=== PATIENT | female | born 1955 | race Caucasian/White ===

== ENCOUNTER → 2017-09-14 | Outpatient (CLI) | payer OTHER ==
--- NOTE | 2017-09-14 10:37 | WWHP ---
[facility] - HISTORY AND PHYSICAL DATE OF SERVICE: 09/14/2017 CHIEF COMPLAINT: The patient is here for her routine gynecologic exam and mammogram. HPI: This is a 61-year-old G0 with an LMP of 2006. The patient is without gynecologic complaints and denies any postmenopausal bleeding. PAST MEDICAL HISTORY: Chronic hypertension, hypothyroidism, and seasonal allergies. MEDICATIONS: 1. Synthroid 100 mcg daily. 2. Lisinopril 20 mg daily. 3. Celexa 20 mg daily. 4. Multivitamin daily. 5. Calcium with vitamin D daily. 6. Vitamin D supplement 400 units daily. ALLERGIES: No known drug allergies. PAST SURGICAL HISTORY: Colonoscopy 2009, oral surgery in the past and a benign cyst removed from the face in the past. 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 FAMILY HISTORY: Father had lung cancer and prostate cancer. Mother has coronary artery disease and CHF. SOCIAL HISTORY: She quit smoking at age 41 and has about 8 alcohol containing drinks per week and denies drug use. She is single and has been with her significant other since 2001 and is not sexually active. She has 3 horses. REVIEW OF SYSTEMS: She has gained about 6 pounds over the last year. She denies respiratory, cardiac or GI problems. PHYSICAL EXAM: Blood pressure 163/78, height 5 feet 5 inches, weight 162 pounds, temperature 98.5, pulse 61. This is a well-developed, well-nourished, white female, who is alert and oriented x3, in no acute distress HEENT is within normal limits. NECK: Supple without mass or thyromegaly chest. CHEST AND LUNGS: Clear to auscultation. HEART: Regular rate and rhythm. Breasts are without mass or discharge. Axillary exam is negative for adenopathy. BACK: Negative for CVA tenderness. ABDOMEN: Soft, nontender, without palpable masses. PELVIC EXAM: External genitalia reveals mild to moderate atrophy without lesions. Cervix and vagina reveal mild to moderate atrophy without lesions. Cervix appears nulliparous and cervix is somewhat stenotic upon doing the Pap smear. There is no evidence of prolapse. The uterus is mid position, nongravid size and nontender. There are no palpable adnexal masses or tenderness. Rectovaginal exam is negative for mass or tenderness and is negative for occult blood. EXTREMITIES: Nontender. IMPRESSION: 1. A 61-year-old menopausal female with normal gynecologic exam. 2. Elevated blood pressure with history of chronic hypertension. PLAN: 1. Pap smear was performed. 2. Self breast examination was discussed. 3. Mammogram will be done today. 4. Osteoporosis prevention was discussed. Her last bone density test was approximately 2013 per the patient and was normal per the patient. We will plan on repeating this in 1 to 2 years. 5. We have discussed her elevated blood pressure. She is able to check her blood pressure at home and I have recommended she do this on a regular basis and to follow up with Dr. Ruiz regarding blood pressure elevations. 6. She will return in 1 year. MMODL / IJN: [id number] /
--- NOTE | 2017-09-16 09:50 | MM ---
Reason for exam: screening (asymptomatic). Last mammogram was performed 1 year and 1 month ago. History: Patient is postmenopausal and is nulliparous. Physical Findings: A clinical breast exam by your physician is recommended on an annual basis and results should be correlated with mammographic findings. MG Screening Mammo w CAD Bilateral CC and MLO view(s) were taken. Prior study comparison: August 04, 2016, bilateral MG screening mammo w CAD. June 24, 2015, bilateral MG screening mammo w CAD. There are scattered fibroglandular densities. No significant changes when compared with prior studies. ASSESSMENT: Negative, BI-RAD 1 RECOMMENDATION: Routine screening mammogram of both breasts in 1 year.
== END ==
LOC: WWCWWP 09:34
PROVIDERS: ATTEND Obstetrics & Gynecology
DX: Z12.31 Encounter for screening mammogram for malignant neoplasm of breast (principal)

== ENCOUNTER → 2020-01-01 | Outpatient (CLI) | payer OTHER ==
[2020-01-01 09:45] VITALS: BP 164/79; PULSE 65; RESP 18; TEMP 98.4
--- NOTE | 2020-01-01 10:18 | P.HPOB ---
History of Present Illness H&P Date: 01/01/20 Chief Complaint: The patient is here for her routine gynecologic exam and ma mmogram. This is a 64-year-old G0 with an LMP of 2006. The patient is without gynecologic complaints and denies any postmenopausal bleeding. Review of Systems The patient has lost 7 pounds over the last year. This has been with diet and exercise. She denies respiratory, cardiac, or G.I. problems. Past Medical History Past Medical History: Hypertension, Thyroid Disorder Additional Past Medical History / Comment(s): Hypothyroidism. Seasonal allergies. 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 History of Any Multi-Drug Resistant Organisms: None Reported Past Surgical History: No Surgical Hx Reported Additional Past Surgical History / Comment(s): Oral surgery and a benign cyst removed from the face. Colonoscopy 2009. Past Psychological History: Depression Smoking Status: Former smoker Past Alcohol Use History: Occasional (8 per week.) Additional Past Alcohol Use History / Comment(s): Quit smoking at age 41. Past Drug Use History: None Reported Additional History: She is single and has been with her significant other since 2001. She is not sexually active. 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 She has to horses and takes care of her third.. - Past Family History Father Family Medical History: Cancer Additional Family Medical History / Comment(s): Lung and prostate cancer. Mother Family Medical History: Congestive Heart Failure (CHF), Coronary Artery Disease (CAD) Medications and Allergies Home Medications Medication Instructions Recorded Confirmed Type Calcium Carbonate/Vitamin D3 1,200 each PO DAILY 10/24/18 01/01/20 History [Calcium 500-Vit D3 600 Tablet] Citalopram Hydrobromide [CeleXA] 20 mg PO DAILY 10/24/18 01/01/20 History Levothyroxine Sodium [Synthroid] 88 mcg PO DAILY 10/24/18 01/01/20 History Lisinopril [Zestril] 20 mg PO DAILY 10/24/18 01/01/20 History Multivitamin [Multivitamins Adult 1 each PO DAILY 10/24/18 01/01/20 History Gummies] Cholecalciferol [Vitamin D3 (25 5,000 unit PO DAILY 01/01/20 01/01/20 History Mcg = 1000 Iu)] Allergies Allergy/AdvReac Type Severity Reaction Status Date / Time No Known Allergies Allergy Unverified 01/01/20 09:47 Exam Vital Signs Temp Pulse Resp BP Pulse Ox 01/01/20 09:41 98.4 F 65 18 164/79 99 Intake and Output 12/31/19 01/01/20 01/01/20 22:59 06:59 14:59 Other: Weight 71.668 kg Height 5 feet 5 inches, weight 158 pounds, BMI 26.3. This is a well-developed well-nourished white female who is alert and oriented times 3 in no acute distress. HEENT: Within normal limits. NECK: Supple without mass or thyromegaly. CHEST AND LUNGS: Clear to auscultation. HEART: Regular rate and rhythm. BREASTS: Are without mass or discharge. There is central left breast nipple inversion which she states has been this way most of her life. AXILLARY EXAM: Negative for adenopathy. BACK: Negative for CVA tenderness. ABDOMEN: Soft, nontender, without palpable masses. PELVIC EXAM: Normal external genitalia with mild atrophy. Cervix and vagina appear normal mild atrophy. There is no unusual discharge. There is no evidence of prolapse. The uterus is midposition, nongravid size and nontender. There are no palpable adnexal masses or tenderness. RECTAL EXAM: Rectovaginal exam is negative for mass or tenderness and is negative for occult blood. EXTREMITIES: Nontender. IMPRESSION: 1. 64-year-old menopausal female with normal gynecologic exam. 2. Elevated blood pressure with history of chronic hypertension. PLAN: 1. Pap smear was performed. 2. Self breast awareness was discussed with the patient. 3. Screening mammogram will be done today. 4. Osteoporosis prevention was discussed. I have stressed the importance of adequate calcium, vitamin D and regular exercise. Recommended amounts of calcium and vitamin D were also discussed. She states she will be doing bone density testing through her PCP in the near future. 5. She is due for her colonoscopy and she will discuss this with her PCP. 6. We have discussed her elevated blood pressure. I have recommended that she check her own blood pressure on a daily basis since she has a blood pressure cuff. She will follow up with her PCP for blood pressure elevations. 7. She was advised to return in one year for her annual well woman exam.
--- NOTE | 2020-01-02 12:00 | MM ---
Reason for exam: screening (asymptomatic). Last mammogram was performed 1 year and 2 months ago. History: Patient is postmenopausal and is nulliparous. Physical Findings: A clinical breast exam by your physician is recommended on an annual basis and results should be correlated with mammographic findings. MG Screening Mammo w CAD Bilateral CC and MLO view(s) were taken. Prior study comparison: October 24, 2018, bilateral MG screening mammo w CAD. September 14, 2017, bilateral MG screening mammo w CAD. Stable left upper outer quadrant posterior depth focal asymmetry. No significant changes when compared with prior studies. ASSESSMENT: Benign, BI-RAD 2 RECOMMENDATION: Routine screening mammogram of both breasts in 1 year.
== END | disposition home or self-care (01) ==
LOC: WWCWWP 09:19
PROVIDERS: ATTEND Obstetrics & Gynecology
DX: Z12.31 Encounter for screening mammogram for malignant neoplasm of breast (principal)
CPT/HCPCS: 77067

== ENCOUNTER → 2021-03-10 | Outpatient (CLI) | payer OTHER ==
[2021-03-10 10:58] VITALS: BP 162/87; PULSE 68; RESP 18; TEMP 98
--- NOTE | 2021-03-10 11:32 | P.HPOB ---
History of Present Illness H&P Date: 03/10/21 Chief Complaint: The patient is here for her routine gynecologic exam and ma mmogram. This is a 65-year-old G0 with an LMP of 2006. The patient is without gynecologic complaints and denies any postmenopausal bleeding. Review of Systems The patient's weight has been stable over the last year. She denies respiratory, cardiac, or G.I. problems. Past Medical History Past Medical History: Hypertension, Thyroid Disorder Additional Past Medical History / Comment(s): Hypothyroidism. Seasonal allergies. 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 History of Any Multi-Drug Resistant Organisms: None Reported Past Surgical History: No Surgical Hx Reported Additional Past Surgical History / Comment(s): Oral surgery and a benign cyst removed from the face. Colonoscopy 2009([facility] 2019). Past Psychological History: Depression Smoking Status: Former smoker Past Alcohol Use History: Occasional (9 per week) Additional Past Alcohol Use History / Comment(s): Quit smoking at age 41. Past Drug Use History: None Reported Additional History: She is single and has been with her significant other since 2001. She is not sexually active. She is retired. She has horses. - Past Family History Father Family Medical History: Cancer Additional Family Medical History / Comment(s): Lung and prostate cancer. Mother Family Medical History: Congestive Heart Failure (CHF), Coronary Artery Disease (CAD) Medications and Allergies Home Medications Medication Instructions Recorded Confirmed Type Calcium Carbonate/Vitamin D3 1,200 each PO DAILY 10/24/18 03/10/21 History [Calcium 500-Vit D3 600 Tablet] Citalopram Hydrobromide [CeleXA] 20 mg PO DAILY 10/24/18 03/10/21 History Levothyroxine Sodium [Synthroid] 88 mcg PO DAILY 10/24/18 03/10/21 History Multivitamin [Multivitamins Adult 1 each PO DAILY 10/24/18 03/10/21 History Gummies] lisinopriL [Zestril] 20 mg PO DAILY 10/24/18 03/10/21 History Cholecalciferol [Vitamin D3 (25 5,000 unit PO DAILY 01/01/20 03/10/21 History Mcg = 1000 Iu)] Allergies Allergy/AdvReac Type Severity Reaction Status Date / Time No Known Allergies Allergy Unverified 03/10/21 10:55 Exam Vital Signs Temp Pulse Resp BP Pulse Ox 03/10/21 10:55 98.0 F 68 18 162/87 100 Intake and Output 03/09/21 03/10/21 03/10/21 22:59 06:59 14:59 Other: Weight 70.76 kg Height 5 feet 5 inches, weight 156 pounds, BMI 26.0. This is a well-developed well-nourished white female who is alert and oriented times 3 in no acute distress. HEENT: Within normal limits. NECK: Supple without mass or thyromegaly. CHEST AND LUNGS: Clear to auscultation. HEART: Regular rate and rhythm. BREASTS: Are without mass or discharge. AXILLARY EXAM: Negative for adenopathy. BACK: Negative for CVA tenderness. ABDOMEN: Soft, nontender, without palpable masses. PELVIC EXAM: Normal external genitalia with mild to moderate atrophy. Cervix and vagina appear normal with mild atrophy. There is no unusual discharge. There is no evidence of prolapse. The uterus is midposition, nongravid size and nontender. There are no palpable adnexal masses or tenderness. RECTAL EXAM: Rectal exam was declined by the patient. EXTREMITIES: Nontender. IMPRESSION: 1. 65-year-old menopausal female with normal gynecologic exam. 2. Elevated blood pressure with history of chronic hypertension. PLAN: 1. Pap smear was deferred since she had a normal one on 01/01/2020. 2. Self breast awareness was discussed with the patient. 3. Screening mammogram will be done today. 4. If discussed her elevated blood pressure. I have recommended that she check her own blood pressure on a regular basis at home. She is to follow-up with Dr. Ruiz for blood pressure elevations. 5. Osteoporosis prevention was discussed. I have stressed the importance of adequate calcium, vitamin D and regular exercise. Recommended amounts of calcium and vitamin D were also discussed. She states she had a normal bone density test done through her PCP and she will continue to do them through her PCP as directed. 6. She did complete her Covid vaccination. 7. She was advised to return in one year for her annual well woman exam.
== END ==
LOC: WWCWWP 10:47
PROVIDERS: ATTEND Obstetrics & Gynecology
DX: Z01.419 Encounter for gynecological examination (general) (routine) without abnormal findings (principal); I10 Essential (primary) hypertension; E03.9 Hypothyroidism, unspecified; F32.9 Major depressive disorder, single episode, unspecified; Z87.891 Personal history of nicotine dependence; Z12.31 Encounter for screening mammogram for malignant neoplasm of breast
CPT/HCPCS: 77067

== ENCOUNTER → 2022-08-03 | Outpatient (CLI) | payer MEDICARE, OTHER ==
[2022-08-03 11:23] VITALS: BP 172/83; PULSE 85; RESP 16; TEMP 98.2
--- NOTE | 2022-08-03 12:18 | P.HPOB ---
History of Present Illness H&P Date: 08/03/22 Chief Complaint: The patient is here for her routine gynecologic exam and ma mmogram. This is a 66-year-old G0 with an LMP of 2006. The patient is without gynecologic complaints and denies any postmenopausal bleeding. Review of Systems The patient has gained 6 pounds over the last year. She denies respiratory, cardiac, or G.I. problems. Past Medical History Past Medical History: Hypertension, Thyroid Disorder Additional Past Medical History / Comment(s): Hypothyroidism. Seasonal allergies. 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 History of Any Multi-Drug Resistant Organisms: None Reported Past Surgical History: No Surgical Hx Reported Additional Past Surgical History / Comment(s): Oral surgery and a benign cyst removed from the face. Colonoscopy 2009([facility] 2019). Past Psychological History: Depression Smoking Status: Former smoker Past Alcohol Use History: Occasional (10 beers per week) Additional Past Alcohol Use History / Comment(s): Quit smoking at age 41. Past Drug Use History: None Reported Additional History: She is single and has been with her significant other since 2001. They do live together. She is not sexually active. She is retired and has horses. - Past Family History Father Family Medical History: Cancer Additional Family Medical History / Comment(s): Lung and prostate cancer. Mother Family Medical History: Congestive Heart Failure (CHF), Coronary Artery Disease (CAD) Medications and Allergies Home Medications Medication Instructions Recorded Confirmed Type Calcium Carbonate/Vitamin D3 1,200 each PO DAILY 10/24/18 08/03/22 History [Calcium 500-Vit D3 600 Tablet] Citalopram Hydrobromide [CeleXA] 20 mg PO DAILY 10/24/18 08/03/22 History Levothyroxine Sodium [Synthroid] 100 mcg PO DAILY 10/24/18 08/03/22 History Multivitamin [Multivitamins Adult 1 each PO DAILY 10/24/18 08/03/22 History Gummies] lisinopriL [Zestril] 20 mg PO DAILY 10/24/18 08/03/22 History Cholecalciferol [Vitamin D3 (25 5,000 unit PO DAILY 01/01/20 08/03/22 History Mcg = 1000 Iu)] Allergies Allergy/AdvReac Type Severity Reaction Status Date / Time No Known Allergies Allergy Unverified 08/03/22 11:24 Exam Vital Signs Temp Pulse Resp BP Pulse Ox 08/03/22 11:21 98.2 F 85 16 172/83 100 Intake and Output 08/02/22 08/03/22 08/03/22 22:59 06:59 14:59 Other: Weight 73.482 kg Height 5 feet 5 inches, weight 162 pounds, BMI 27.0. This is a well-developed well-nourished white female who is alert and oriented times 3 in no acute distress. HEENT: Within normal limits. NECK: Supple without mass or thyromegaly. CHEST AND LUNGS: Clear to auscultation. HEART: Regular rate and rhythm. BREASTS: Are without mass or discharge. The left nipple is inverted and she states she has had this most of her life. AXILLARY EXAM: Negative for adenopathy. BACK: Negative for CVA tenderness. ABDOMEN: Soft, nontender, without palpable masses. PELVIC EXAM: Normal external genitalia with mild to moderate atrophy. Cervix and vagina appear normal with mild to moderate atrophy. There is no unusual discharge. There is no evidence of prolapse. The uterus is midposition, nongravid size and nontender. There are no palpable adnexal masses or tenderness. RECTAL EXAM: Rectovaginal exam is negative for mass or tenderness and is negative for occult blood. EXTREMITIES: Nontender. IMPRESSION: 1. 66-year-old menopausal female with normal gynecologic exam. PLAN: 1. Pap smear was performed. If this is negative we will plan on discontinuing Pap smears. 2. Self breast awareness was discussed with the patient. We have also discussed symptoms associated with inflammatory breast cancer. 3. Screening mammogram will be done today. 4. Osteoporosis prevention was discussed. I have stressed the importance of adequate calcium, vitamin D and regular exercise. Recommended amounts of calcium and vitamin D were also discussed. Bone density testing will be done today. Her last one was more than 10 years ago. 5. She has completed her: Video vaccination series and has received 1 booster. 6. The patient was advised to return in 1-2 years for her well woman examination.
--- NOTE | 2022-08-04 13:36 | MM ---
Reason for Exam: Screening (asymptomatic). Last mammogram was performed 1 year(s) and 5 month(s) ago. Patient History: Menarche at age 12. Patient has no children. Postmenopausal. Risk Values: Molly 5 year model risk: 2.0%. NCI Lifetime model risk: 7.6%. Prior Study Comparison: 10/24/2018 Bilateral Screening Mammogram, [facility]. 01/01/2020 Bilateral Screening Mammogram, [facility]. 03/10/2021 Bilateral Screening Mammogram, [facility]. Tissue Density: The breast tissue is heterogeneously dense. This may lower the sensitivity of mammography. Findings: Analyzed By CAD. No significant changes when compared with prior studies. No discrete abnormality. Overall Assessment: Negative, BI-RAD 1 Management: Screening Mammogram of both breasts in 1 year. A clinical breast exam by your physician is recommended on an annual basis and results should be correlated with mammographic findings. Electronically signed and approved by: Ghulam Álvarez M.D. Radiologis
== END ==
LOC: WWCWWP 11:09
PROVIDERS: ATTEND Obstetrics & Gynecology
DX: Z12.31 Encounter for screening mammogram for malignant neoplasm of breast (principal); Z01.419 Encounter for gynecological examination (general) (routine) without abnormal findings; Z78.0 Asymptomatic menopausal state; I10 Essential (primary) hypertension; E03.9 Hypothyroidism, unspecified; F32.A Depression, unspecified; Z87.891 Personal history of nicotine dependence; Z79.890 Hormone replacement therapy; Z79.899 Other long term (current) drug therapy
CPT/HCPCS: 77063; 77067

== ENCOUNTER → 2022-08-06 | Outpatient (CLI) | payer MEDICARE, OTHER ==
--- NOTE | 2022-08-08 08:04 | BD ---
EXAMINATION TYPE: Axial Bone Density DATE OF EXAM: 08/06/2022 COMPARISON: None CLINICAL HISTORY: 66 years year old Female. ICD-10 CODE: Z78.0 POST MENOPAUSAL SYMPTOMS WITHOUT HRT Height: 63IN Weight: 162 FRAX RISK QUESTIONS: Secondary Osteoporosis: 2. 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 Bone mineral density as measured about the Lumbar spine is: ----- L1-L4(G/cm2): 1.100 T Score Values are as follows: ----- L1: -0.6 ----- L2: -0.9 ----- L3: -0.6 ----- L4: -0.7 ----- L1-L4: -0.7 Bone mineral density has: Decreased -10.6% since study of: 05-03-2006 Bone mineral density about the R hip (g/cm2): 0.901 Bone mineral density about the L hip (g/cm2): 0.973 T Score values are as follows: -----R Neck: -0.6 -----L Neck: -0.6 -----R Total: -0.8 -----L Total: -0.3 Bone mineral density has: Decreased -7.3% since study of: 05-03-2006 FRAX%s: The graph provided illustrates a 7.4% chance for a major osteoporotic fx and a 0.4% chance fo r the hips probability for fx in 10 years time. IMPRESSION: Normal (Values between +1 and -1 indicate normal bone mass). Consider repeating this study in 5 year s or sooner if there is some new clinical indication. NOTE: T-SCORE=SD OF THE YOUNG ADULT MEAN.
== END | disposition home or self-care (01) ==
LOC: RADBDWWP 14:49
PROVIDERS: ATTEND Obstetrics & Gynecology
DX: Z78.0 Asymptomatic menopausal state (principal)
CPT/HCPCS: 77080

== ENCOUNTER → 2024-01-17 | Outpatient (CLI) | payer MEDICARE, OTHER ==
[2024-01-17 12:12] VITALS: BP 173/87; PULSE 68; RESP 17; TEMP 98.7
--- NOTE | 2024-01-17 12:15 | P.HPOB ---
History of Present Illness H&P Date: 01/17/24 Chief Complaint: The patient is here for her routine gynecologic exam and ma mmogram. This is a 68-year-old G0 with an LMP of 2006. The patient is without gynecologic complaints. Review of Systems The patient's weight has been stable over the last year. She denies respiratory, cardiac, or G.I. problems. Past Medical History Past Medical History: Hyperlipidemia, Hypertension, Thyroid Disorder Additional Past Medical History / Comment(s): Hypothyroidism. Seasonal allergies. 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 History of Any Multi-Drug Resistant Organisms: None Reported Past Surgical History: No Surgical Hx Reported Additional Past Surgical History / Comment(s): Oral surgery and a benign cyst removed from the face. Colonoscopy 2009(Cologard 2019). Past Psychological History: Depression Smoking Status: Former smoker Past Alcohol Use History: Occasional (10 beers per week.) Additional Past Alcohol Use History / Comment(s): Quit smoking at age 41. Past Drug Use History: None Reported Additional History: She is single and has been with her significant other since 2001. She is not sexually active. She is retired and rides horses. - Past Family History Father Family Medical History: Cancer Additional Family Medical History / Comment(s): Lung and prostate cancer. Mother Family Medical History: Congestive Heart Failure (CHF), Coronary Artery Disease (CAD) Medications and Allergies Home Medications Medication Instructions Recorded Confirmed Type Calcium Carbonate/Vitamin D3 1,200 each PO DAILY 10/24/18 01/17/24 History [Calcium 500-Vit D3 600 Tablet] Citalopram Hydrobromide [CeleXA] 20 mg PO DAILY 10/24/18 01/17/24 History Levothyroxine Sodium [Synthroid] 100 mcg PO DAILY 10/24/18 01/17/24 History Multivitamin [Multivitamins Adult 1 each PO DAILY 10/24/18 01/17/24 History Gummies] lisinopriL [Zestril] 20 mg PO DAILY 10/24/18 01/17/24 History Cholecalciferol [Vitamin D3 (25 5,000 unit PO DAILY 01/01/20 01/17/24 History Mcg = 1000 Iu)] Rosuvastatin [Crestor] 5 mg PO DAILY 01/17/24 01/17/24 History Allergies Allergy/AdvReac Type Severity Reaction Status Date / Time No Known Allergies Allergy Unverified 01/17/24 11:39 Exam Vital Signs Temp Pulse Resp BP Pulse Ox 01/17/24 11:40 98.7 F 68 17 173/87 97 Intake and Output 01/16/24 01/17/24 01/17/24 22:59 06:59 14:59 Other: Weight 73.482 kg Height 5 feet 4 inches, weight 162 pounds, BMI 27.8. This is a well-developed well-nourished white female who is alert and oriented times 3 in no acute distress. HEENT: Within normal limits. NECK: Supple without mass or thyromegaly. CHEST AND LUNGS: Clear to auscultation. HEART: Regular rate and rhythm. BREASTS: Are without mass or discharge. There is central left nipple inversion which the patient states she has had all her life. AXILLARY EXAM: Negative for adenopathy. BACK: Negative for CVA tenderness. ABDOMEN: Soft, nontender, without palpable masses. PELVIC EXAM: Normal external genitalia with mild atrophy. Cervix and vagina appear normal mild to moderate atrophy. There is no unusual discharge. There is no evidence of prolapse. The uterus is midposition, nongravid size and nontender. There are no palpable adnexal masses or tenderness. RECTAL EXAM: Rectovaginal exam is negative for mass or tenderness and is negative for occult blood. EXTREMITIES: Nontender. IMPRESSION: 1. 68-year-old menopausal female with normal gynecologic exam. PLAN: 1. Pap smears have been discontinued. 2. Self breast awareness was discussed with the patient. We have also discussed symptoms associated with inflammatory breast cancer. 3. Screening mammogram will be done today. 4. PHQ-2 questionaire was given and she scores 0. This is a negative screen for depression. 5. Osteoporosis prevention was discussed. I have stressed the importance of adequate calcium, vitamin D and regular exercise. Recommended amounts of calcium and vitamin D were also discussed. She had a normal bone density test on 08/03/2022 and we will plan on repeating it after 5 years. 6. The patient is planning on doing a Cologuard test for colorectal cancer screening through her PCP this year. 7. The patient was advised to return in 1-2 years for her well woman examination.
--- NOTE | 2024-01-18 09:10 | MM ---
Reason for Exam: Screening (asymptomatic). Last mammogram was performed 1 year(s) and 5 month(s) ago. Patient History: Menarche at age 12. Patient has no children. Postmenopausal. Risk Values: Molly 5 year model risk: 2.1%. NCI Lifetime model risk: 7.0%. Prior Study Comparison: 01/01/2020 Bilateral Screening Mammogram, [facility]. 03/10/2021 Bilateral Screening Mammogram, [facility]. 08/03/2022 Bilateral MG 3D screening mammo w/cad, [facility]. Tissue Density: The breast tissue is heterogeneously dense. This may lower the sensitivity of mammography. Findings: Analyzed By CAD. There is no suspicious group of microcalcifications or new suspicious mass in either breast. Benign calcifications. Overall Assessment: Benign, BI-RAD 2 Management: Screening Mammogram of both breasts in 1 year. . Patient should continue monthly self-breast exams. A clinical breast exam by your physician is recommended on an annual basis. This exam should not preclude additional follow-up of suspicious palpable abnormalities. Note on Molly scores and lifetime risk: 1. A Molly score greater than 3% is considered moderate risk. If this is the case, consider specialist referral to assess eligibility for a risk reducing agent. 2. If overall lifetime risk for the development of breast cancer is 20% or higher, the patient may qualify for future screening with alternating mammogram and breast MRI. Electronically signed and approved by: Ac Woo M.D. [facility]
== END ==
LOC: WWCWWP 11:17
PROVIDERS: ATTEND Obstetrics & Gynecology
DX: Z12.31 Encounter for screening mammogram for malignant neoplasm of breast (principal); R92.1 Mammographic calcification found on diagnostic imaging of breast; R92.333 Mammographic heterogeneous density, bilateral breasts; E78.5 Hyperlipidemia, unspecified; E03.9 Hypothyroidism, unspecified; F32.A Depression, unspecified; I10 Essential (primary) hypertension; Z87.891 Personal history of nicotine dependence; Z79.890 Hormone replacement therapy; Z79.899 Other long term (current) drug therapy; Z78.0 Asymptomatic menopausal state
CPT/HCPCS: 77063; 77067